=== PATIENT | female | born 2005 | race Caucasian/White ===

== ENCOUNTER 2024-08-27 17:21 | Outpatient (CLI) | payer OTHER, SELFPAY ==
--- NOTE | 2024-08-27 17:30 | MR_ITS ---
[address] [address] Phone:?[phone] Fax:?[phone] Referring Physician Information: Leah Nowak [address] [facility] [address] Phone:?[phone] Fax:?[phone] Patient:Rodri Mars D.O.B:?2005 Sex:?Female Phone:?[phone] [facility] MRN:?[id number] Exam Date:?08/27/2024 EXAM: MRI of the RIGHT KNEE, without contrast CLINICAL: Right knee pain. Evaluate for internal derangement. COMPARISONS: X-rays dated 09/02/2022. TECHNICAL: Multiplanar multisequence MRI of the right knee was obtained. SEDATION: None. CONTRAST: None. FINDINGS: Ligaments: ACL: Intact and unremarkable. PCL: Intact and unremarkable. MCL: Intact and unremarkable. LCL: Intact and unremarkable. Posterolateral corner: Popliteus, biceps femoris, iliotibial band, and the popliteofibular ligament appear intact. Posteromedial corner: Semimembranosus, pes anserine tendons and posterior oblique ligament appear intact. Extensor mechanism: Patellar tendon: Intact, without tendinopathy. Quadriceps tendon: Intact, without tendinopathy. Retinacula: Medial and lateral retinacula are intact. Fat pads: Unremarkable infrapatellar Hoffa's, quadriceps and prefemoral fat pads. Patellofemoral joint: Patella: No significant chondromalacia. Trochlea: There is chondral heterogeneity and deep chondral fissuring involving the central trochlea with underlying subchondral reactive marrow edema. Medial compartment: Medial meniscus: No evidence of discrete meniscal tear or meniscal displacement. Medial cartilage: No significant chondromalacia. Lateral compartment: Lateral meniscus: No evidence of discrete meniscal tear or meniscal displacement. Lateral cartilage: No significant chondromalacia. Knee joint: Effusion: Physiologic right knee effusion. Intra-articular bodies:?No convincing bodies identified. Popliteal cyst: None. Bones: Subchondral marrow edema involves the central trochlea as above. No evidence of fracture. IMPRESSION: 1. Chondral heterogeneity with deep chondral fissuring and underlying subchondral reactive marrow edema involving the central trochlea. 2. No additional internal derangement identified. JCZ Electronically signed on 08/30/2024 11:40:00 AM by Sebastien Broussard D.O.
== END 2024-08-27 17:22 | disposition home or self-care (01) ==
PROVIDERS: PCP Family Medicine; Visit Provider Physician Assistant
DX: M25.561 Pain in right knee (principal)
CPT/HCPCS: 73721

== ENCOUNTER 2024-11-08 11:00 | Outpatient (CLI) | payer OTHER, SELFPAY ==
--- NOTE | 2024-11-08 11:15 | MR_ITS ---
[address] [address] Phone:?[phone] Fax:?[phone] Referring Physician Information: Leah Nowak [address] [facility] [address] Phone:?[phone] Fax:?[phone] Patient:Rodri Mars D.O.B:?2005 Sex:?Female Phone:?[phone] [facility] MRN:?[id number] Exam Date:?11/08/2024 EXAM: MRI of the RIGHT KNEE, without contrast CLINICAL HISTORY: Ongoing right knee pain. Posterior cruciate ligament tear. COMPARISONS: Plain radiographs 11/08/2024. MRI 08/27/2024. TECHNICAL: MR sequences of the right knee: sagittals: PD, PDFS coronals: PD, STIR axials: PD, T2 FS CONTRAST: None SEDATION: None FINDINGS: Bones: No fracture or destructive osseous lesion. Patellofemoral joint: Cartilage: Single focus of full-thickness chondral fissuring over the inferior portion of the trochlear groove with subjacent subchondral edema-like signal, unchanged compared to previous MRI 08/27/2024. Retinacula: The medial and lateral retinacula are intact. Fat pads: The infrapatellar, quadriceps, and prefemoral fat pads are unremarkable. Knee joint: Effusion: Small right knee joint effusion. Popliteal cyst: None. Intra-articular bodies: None. Posteromedial corner: The semimembranosus and pes anserine tendons are intact. Medial compartment: Medial meniscus: Intact. Cartilage: Intact. Lateral compartment: Lateral meniscus: Intact. Cartilage: Intact. Ligaments: Anterior cruciate ligament: Intact. Posterior cruciate ligament: Intact. Medial collateral ligament: Intact. Posterior oblique ligament: Intact. Fibular collateral ligament: Intact. Posterolateral corner: The distal biceps femoris tendon, iliotibial band, popliteus tendon, popliteus muscle, popliteofibular ligament, and arcuate ligament are intact. Extensor mechanism: Patellar tendon: Intact. Quadriceps tendon: Intact. IMPRESSION: 1. Single focus of full-thickness chondral fissuring over the inferior portion of the trochlear groove with subjacent subchondral edema-like signal, unchanged compared to previous MRI 08/27/2024. 2. Otherwise, unremarkable MRI of the right knee without ligamentous, tendinous, or meniscal pathology. RCB Electronically signed on 11/08/2024 1:17:00 PM by Delvis Thornton M.D.
== END 2024-11-08 11:01 | disposition home or self-care (01) ==
LOC: MRI 11:01
PROVIDERS: PCP Family Medicine; Visit Provider Physician Assistant
DX: M25.561 Pain in right knee (principal)
CPT/HCPCS: 73721

== ENCOUNTER 2025-04-22 08:30 | Outpatient (RCR) | payer OTHER, SELFPAY | END 2025-07-05 09:05 | disposition home or self-care (01) | PROVIDERS: PCP Family Medicine; Visit Provider Physician Assistant | DX: S89.91XD Unspecified injury of right lower leg, subsequent encounter (principal); Z51.89 Encounter for other specified aftercare | CPT/HCPCS: 97110; 97161 ==